=== PATIENT | female | born 1995 | race Caucasian/White ===

== ENCOUNTER 2018-12-30 09:02 | Outpatient (CLI) | payer MEDICAID ==
[~2018-12-30 09:02] MED LIST: LORA0.5T PO
== END 2018-12-30 23:59 | disposition home or self-care (01) ==
LOC: RAD 09:02
DX: G40.909 Epilepsy, unspecified, not intractable, without status epilepticus (principal); F17.200 Nicotine dependence, unspecified, uncomplicated
CPT/HCPCS: 95819

== ENCOUNTER 2019-07-31 19:38 | Emergency (ER) | payer MEDICAID ==
[~2019-07-31] VITALS: Ht 149.9 cm; Wt 47.7 kg
[2019-07-31 20:58] VITALS: BP 101/60
== END 2019-07-31 21:00 | disposition home or self-care (01) ==
LOC: ER 19:39
DX: G40.909 Epilepsy, unspecified, not intractable, without status epilepticus (principal); F12.90 Cannabis use, unspecified, uncomplicated; Z88.6 Allergy status to analgesic agent
CPT/HCPCS: 99284